=== PATIENT | female | born 1955 | race Caucasian/White ===

== ENCOUNTER → 2017-06-13 | Outpatient (CLI) | payer BC ==
--- NOTE | 2017-06-14 12:49 | MM ---
Reason for exam: screening (asymptomatic). Last mammogram was performed 1 year and 2 months ago. History: Patient is postmenopausal. Benign left mammotome panel of the left breast, June 26, 2009. Took estrogen for 1 year beginning at age 54. Took progesterone for 1 year beginning at age 54. Physical Findings: A clinical breast exam by your physician is recommended on an annual basis and results should be correlated with mammographic findings. MG Screening Mammo w CAD Bilateral CC and MLO view(s) were taken. Prior study comparison: April 12, 2016, bilateral MG screening mammo w CAD. January 07, 2015, bilateral MG screening mammo w CAD. December 30, 2013, bilateral digital screening mammo w/CAD. There are scattered fibroglandular densities. Previous mammotome biopsy within the left breast. There is no discrete abnormality. ASSESSMENT: Negative, BI-RAD 1 RECOMMENDATION: Routine screening mammogram of both breasts in 1 year.
== END | disposition home or self-care (01) ==
LOC: RADMAMWWP 12:08
PROVIDERS: ATTEND Obstetrics & Gynecology
DX: Z12.31 Encounter for screening mammogram for malignant neoplasm of breast (principal)

== ENCOUNTER 2018-06-01 03:56 | Observation (INO) | payer BC ==
[2018-06-01] MEDS ORDERED: NITROGLYCERIN SL TABS 0.4 MG TAB SUBLINGUAL STA (04:54)
[2018-06-01] MEDS ORDERED: SODIUM CHLORIDE 0.9% 1,000 ML IV STA (04:54)
[2018-06-01] MEDS ORDERED: GLUCAGON 1 MG/ML VIAL IVP STA (04:55)
--- NOTE | 2018-06-01 04:59 | ED ---
General Adult HPI - General Chief complaint: ENT Stated complaint: ESOPHAGEAL SPASMS Time Seen by Provider: 06/01/18 04:25 Source: patient Mode of arrival: ambulatory Limitations: no limitations - History of Present Illness Initial comments: He states 3-year-old female with a history of esophageal spasm requiring esophageal dilatation of the past presenting to the ER today for evaluation of feeling as though something is stuck in her esophagus or her esophagus is spasming. Patient reports she had corn, zucchini, cornbread and a little bit of ribs for dinner last night. Afterwards she developed a sensation that something was stuck in her esophagus. She reports that throughout the night she has been unable to tolerate her oral secretions. She reports that she's had multiple episodes of vomiting up what appears to just be saliva. She's not vomited up any food. She reports that she's had episodes of esophageal spasm in the past but they never last this long and she usually has resolution after vomiting. The patient states that her last EGD was approximately 2 years ago. She has been well controlled since that time. She states that in the past she has taken a medication that dissolved under her tongue and helped her esophageal spasm but she is uncertain what the medication was. Patient denies any cardiac history, any exertional chest pain, shortness of breath, diaphoresis or lightheadedness. She reports that this pain is identical to previous esophageal spasm pain. - Related Data Allergies Allergy/AdvReac Type Severity Reaction Status Date / Time No Known Allergies Allergy Verified 06/01/18 04:04 Review of Systems ROS Statement: Those systems with pertinent positive or pertinent negative responses have been documented in the HPI. ROS Other: All systems not noted in ROS Statement are negative. Past Medical History Past Medical History: No Reported History History of Any Multi-Drug Resistant Organisms: None Reported Past Surgical History: Joint Replacement Additional Past Surgical History / Comment(s): left knee; esophageal dilation Past Psychological History: No Psychological Hx Reported Smoking Status: Never smoker Past Alcohol Use History: Occasional Past Drug Use History: Marijuana General Exam Limitations: no limitations Course Vital Signs 06/01/18 06/01/18 06/01/18 04:01 04:10 05:29 Temperature 98.0 F Pulse Rate 77 72 75 Respiratory 17 16 18 Rate Blood Pressure 125/71 145/72 O2 Sat by Pulse 99 99 97 Oximetry EKG Findings - EKG Comments: EKG Findings:: EKG obtained at 5:40 AM, rate is 63, rhythm is sinus, AL is 200, QRS is 78, QTC is [address] elevations or depressions, no evidence of acute ischemia or infarction. Medical Decision Making - Medical Decision Making She was seen and evaluated, history was obtained from the patient Patient with a history of esophageal spasms and stricture in the past requiring dilatation approximately 2 years ago Today with globus sensation in her chest feeling as though food is stuck, not tolerating her oral secretions Patient reports that she has had similar episodes to this intermittently for a couple of years but they usually last only seconds to minutes and resolved and she feels fine afterwards. This has persisted throughout the night so she came to the ER Considering the patient's age I will order a cardiac workup, however I do have a high suspicion for esophageal spasm or stricture causing food bolus. I will hold oral aspirin at this time Treat with nitro and glucagon Patient was given nitroglycerin glucagon, she reported no improvement in her discomfort. She attempted to drink water and immediately regurgitated. X-ray with no acute findings of perforation She care was discussed with Dr. Simon who has seen the patient and the past, she recommends pacing patient in observation, nothing by mouth, IV fluid resuscitation and plan for EGD today for food bolus. - Lab Data Result diagrams: 06/01/18 05:25 06/01/18 05:25 Lab Results 06/01/18 06/01/18 06/01/18 Range/Units 05:25 05:25 05:25 WBC 8.6 (3.8-10.6) k/uL RBC 5.12 (3.80-5.40) m/uL Hgb 15.4 (11.4-16.0) gm/dL Hct 46.3 H (34.0-46.0) % MCV 90.5 (80.0-100.0) fL MCH 30.1 (25.0-35.0) pg MCHC 33.3 (31.0-37.0) g/dL RDW 12.6 (11.5-15.5) % Plt Count 294 (150-450) k/uL Neutrophils % 71 % Lymphocytes % 17 % Monocytes % 5 % Eosinophils % 4 % Basophils % 1 % Neutrophils # 6.1 (1.3-7.7) k/uL Lymphocytes # 1.5 (1.0-4.8) k/uL Monocytes # 0.5 (0-1.0) k/uL Eosinophils # 0.3 (0-0.7) k/uL Basophils # 0.1 (0-0.2) k/uL PT 10.2 (9.0-12.0) sec INR 1.0 (<1.2) APTT 26.2 (22.0-30.0) sec Sodium 141 (137-145) mmol/L Potassium 4.0 (3.5-5.1) mmol/L Chloride 108 H (98-107) mmol/L Carbon Dioxide 25 (22-30) mmol/L Anion Gap 8 mmol/L BUN 12 (7-17) mg/dL Creatinine 0.71 (0.52-1.04) mg/dL Est GFR (CKD-EPI)AfAm >90 (>60 ml/min/1.73 sqM) Est GFR (CKD-EPI)NonAf >90 (>60 ml/min/1.73 sqM) Glucose 96 (74-99) mg/dL Calcium 9.8 (8.4-10.2) mg/dL Magnesium 2.1 (1.6-2.3) mg/dL Total Bilirubin 0.6 (0.2-1.3) mg/dL AST 37 H (14-36) U/L ALT 31 (9-52) U/L Alkaline Phosphatase 84 (38-126) U/L Troponin I (0.000-0.034) ng/mL Total Protein 7.7 (6.3-8.2) g/dL Albumin 4.7 (3.5-5.0) g/dL 06/01/18 Range/Units 05:25 WBC (3.8-10.6) k/uL RBC (3.80-5.40) m/uL Hgb (11.4-16.0) gm/dL Hct (34.0-46.0) % MCV (80.0-100.0) fL MCH (25.0-35.0) pg MCHC (31.0-37.0) g/dL RDW (11.5-15.5) % Plt Count (150-450) k/uL Neutrophils % % Lymphocytes % % Monocytes % % Eosinophils % % Basophils % % Neutrophils # (1.3-7.7) k/uL Lymphocytes # (1.0-4.8) k/uL Monocytes # (0-1.0) k/uL Eosinophils # (0-0.7) k/uL Basophils # (0-0.2) k/uL PT (9.0-12.0) sec INR (<1.2) APTT (22.0-30.0) sec Sodium (137-145) mmol/L Potassium (3.5-5.1) mmol/L Chloride (98-107) mmol/L Carbon Dioxide (22-30) mmol/L Anion Gap mmol/L BUN (7-17) mg/dL Creatinine (0.52-1.04) mg/dL Est GFR (CKD-EPI)AfAm (>60 ml/min/1.73 sqM) Est GFR (CKD-EPI)NonAf (>60 ml/min/1.73 sqM) Glucose (74-99) mg/dL Calcium (8.4-10.2) mg/dL Magnesium (1.6-2.3) mg/dL Total Bilirubin (0.2-1.3) mg/dL AST (14-36) U/L ALT (9-52) U/L Alkaline Phosphatase (38-126) U/L Troponin I <0.012 (0.000-0.034) ng/mL Total Protein (6.3-8.2) g/dL Albumin (3.5-5.0) g/dL Disposition Clinical Impression: Globus sensation Disposition: ADMITTED IP TO THIS HOSP Referrals: Mundo Huerta MD [Primary Care Provider] - 1-2 days Time of Disposition: 06:16
--- NOTE | 2018-06-01 05:37 | XR ---
EXAM: XR Chest, 2 Views CLINICAL HISTORY: Chest Pain TECHNIQUE: Frontal and lateral views of the chest. COMPARISON: No relevant prior studies available. FINDINGS: Lungs: Unremarkable. No consolidation. Pleural space: Unremarkable. No pleural effusions. No pneumothorax. Heart: Unremarkable. No cardiomegaly. Mediastinum: Unremarkable. Bones/joints: Unremarkable. IMPRESSION: No acute cardiopulmonary process.
[2018-06-01 05:44] LABS: Basophils # (A) 0.1 k/uL (0-0.2); Basophils % (A) 1 %; Eosinophils # (A) 0.3 k/uL (0-0.7); Eosinophils % (A) 4 %; HCT 46.3 % (34.0-46.0); HGB 15.4 gm/dL (11.4-16.0); Lymphocytes # (A) 1.5 k/uL (1.0-4.8); Lymphocytes % (A) 17 %; MCH 30.1 pg (25.0-35.0); MCHC 33.3 g/dL (31.0-37.0); MCV 90.5 fL (80.0-100.0); Mean Platelet Volume 6.3; Monocytes # (A) 0.5 k/uL (0-1.0); Monocytes % (A) 5 %; Neutrophils # (A) 6.1 k/uL (1.3-7.7); Neutrophils % (A) 71 %; Platelet Count 294 k/uL (150-450); RBC 5.12 m/uL (3.80-5.40); RDW 12.6 % (11.5-15.5); WBC 8.6 k/uL (3.8-10.6)
[2018-06-01 05:52] LABS: ALT 31 U/L (9-52); AST 37 U/L (14-36); Albumin 4.7 g/dL (3.5-5.0); Alkaline Phosphatase 84 U/L (38-126); Anion Gap 8 mmol/L; Blood Urea Nitrogen 12 mg/dL (7-17); Calcium 9.8 mg/dL (8.4-10.2); Carbon Dioxide 25 mmol/L (22-30); Chloride 108 mmol/L (98-107); Glucose 96 mg/dL (74-99); Magnesium 2.1 mg/dL (1.6-2.3); Sodium 141 mmol/L (137-145); Total Bilirubin 0.6 mg/dL (0.2-1.3); Total Protein 7.7 g/dL (6.3-8.2)
[2018-06-01 06:03] LABS: Partial Thromboplastin Time 26.2 sec (22.0-30.0); Prothrombin Time 10.2 sec (9.0-12.0)
[2018-06-01] MEDS ORDERED: NALOXONE 0.4 MG/ML 1 ML VIAL IV PRN (06:12)
[2018-06-01] MEDS: SODIUM CHLORIDE 0.9% 1,000 ML IV SCH ×2 (07:04→14:16)
[2018-06-01 07:05] VITALS: RESP 16; TEMP 97
[2018-06-01] MEDS ORDERED: PROPOFOL 10 MG/ML 20 ML VIAL IV ONE (10:52)
[2018-06-01] MEDS ORDERED: LIDOCAINE 1% INJ 10MG/ML (20 ML MDV) ONE (10:52)
--- NOTE | 2018-06-01 10:55 | P.GSHP ---
History of Present Illness H&P Date: 06/01/18 Chief Complaint: cant swallow The patient is a 63-year-old female who has a history of esophageal stricture in the past. Presented with inability to swallow. It started after eating barbecued ribs with corn, zucchini, cornbread. She will usually noticed some spasm after swallowing but Tums like this which persist. - Review of Systems All systems: negative Past Medical History Past Medical History: No Reported History Additional Past Medical History / Comment(s): Esophageal spasms, sinus allergies. History of Any Multi-Drug Resistant Organisms: None Reported Past Surgical History: Joint Replacement Additional Past Surgical History / Comment(s): Total left knee; EGD with esophageal dilation Past Anesthesia/Blood Transfusion Reactions: No Reported Reaction Smoking Status: Never smoker - Past Family History Father Family Medical History: Pneumonia Additional Family Medical History / Comment(s): Father of pneumonia at the age of 76yrs. He was otherwise, healthy. Mother Family Medical History: Cancer Additional Family Medical History / Comment(s): Mother of pancreatic cancer at the age of 71yrs. Medications and Allergies Allergies Allergy/AdvReac Type Severity Reaction Status Date / Time No Known Allergies Allergy Verified 06/01/18 04:04 Surgical - Exam Osteopathic Statement: *. No significant issues noted on an osteopathic structural exam other than those noted in the History and Physical/Consult. Vital Signs Temp Pulse Resp BP Pulse Ox 98.0 F 77 17 125/71 99 06/01/18 04:01 06/01/18 04:01 06/01/18 04:01 06/01/18 04:01 06/01/18 04:01 - General well developed, well nourished, no distress - Eyes PERRL - ENT normal mucosa - Neck trachea midline, no lymphadectomy - Respiratory normal expansion, clear to auscultation - Cardiovascular Rhythm: regular - Abdomen Abdomen: soft, non tender, no tender, bowel sounds, no guarding, no rigid, no rebound, no distended Results - Labs 06/01/18 05:25 06/01/18 05:25 Abnormal Lab Results - Last 24 Hours (Table) 06/01/18 06/01/18 Range/Units 05:25 05:25 Hct 46.3 H (34.0-46.0) % Chloride 108 H (98-107) mmol/L AST 37 H (14-36) U/L Diabetes panel 06/01/18 Range/Units 05:25 Sodium 141 (137-145) mmol/L Potassium 4.0 (3.5-5.1) mmol/L Chloride 108 H (98-107) mmol/L Carbon Dioxide 25 (22-30) mmol/L BUN 12 (7-17) mg/dL Creatinine 0.71 (0.52-1.04) mg/dL Glucose 96 (74-99) mg/dL Calcium 9.8 (8.4-10.2) mg/dL AST 37 H (14-36) U/L ALT 31 (9-52) U/L Alkaline Phosphatase 84 (38-126) U/L Total Protein 7.7 (6.3-8.2) g/dL Albumin 4.7 (3.5-5.0) g/dL Calcium panel 06/01/18 Range/Units 05:25 Calcium 9.8 (8.4-10.2) mg/dL Albumin 4.7 (3.5-5.0) g/dL Pituitary panel 06/01/18 Range/Units 05:25 Sodium 141 (137-145) mmol/L Potassium 4.0 (3.5-5.1) mmol/L Chloride 108 H (98-107) mmol/L Carbon Dioxide 25 (22-30) mmol/L BUN 12 (7-17) mg/dL Creatinine 0.71 (0.52-1.04) mg/dL Glucose 96 (74-99) mg/dL Calcium 9.8 (8.4-10.2) mg/dL Adrenal panel 06/01/18 Range/Units 05:25 Sodium 141 (137-145) mmol/L Potassium 4.0 (3.5-5.1) mmol/L Chloride 108 H (98-107) mmol/L Carbon Dioxide 25 (22-30) mmol/L BUN 12 (7-17) mg/dL Creatinine 0.71 (0.52-1.04) mg/dL Glucose 96 (74-99) mg/dL Calcium 9.8 (8.4-10.2) mg/dL Total Bilirubin 0.6 (0.2-1.3) mg/dL AST 37 H (14-36) U/L ALT 31 (9-52) U/L Alkaline Phosphatase 84 (38-126) U/L Total Protein 7.7 (6.3-8.2) g/dL Albumin 4.7 (3.5-5.0) g/dL Assessment and Plan (1) Dysphagia Current Visit: Yes Status: Acute Code(s): R13.10 - DYSPHAGIA, UNSPECIFIED SNOMED Code(s): 85790330 (2) History of esophageal stricture Current Visit: Yes Status: Acute Code(s): Z87.19 - PERSONAL HISTORY OF OTHER DISEASES OF THE DIGESTIVE SYSTEM SNOMED Code(s): 823211968 Plan: This is likely an esophageal foreign body due to stricture. Recommended EGD with removal of foreign body and possible dilation. He procedure, risks complications were discussed. Questions were encouraged and answered. If there is a foreign body with significant inflammation in the esophagus a may not dilate her today. If that is the case we would put her on a mechanically soft diet and plan on repeating the endoscopy with dilation in a couple of weeks. Further recommendations to follow
[2018-06-01] MEDS ORDERED: IV FLUID CONTINUATION 1,000 ML IV ONE (11:06)
--- NOTE | 2018-06-01 11:07 | P.PCN ---
Date of Procedure: 06/01/18 Preoperative Diagnosis: Dysphagia, esophageal foreign body Postoperative Diagnosis: Same, Schatzki's ring Procedure(s) Performed: EGD with dilation Anesthesia: MAC Surgeon: Noemi Barba Pathology: none sent Condition: stable Disposition: floor Indications for Procedure: Patient presented with greater than 7 hours of dysphagia with symptoms from eating barbecued ribs, corn, zucchini. She had a history of esophageal strictures in the past. Her symptoms had resolved a short time ago but I recommended that we proceed with EGD. Operative Findings: Patient was taken to the endoscopy suite were gastroscope is passed per mouth to the third and fourth portions of the duodenum. The pharynx is unremarkable. The upper esophagus is without evidence of esophagitis or mass lesion. There is minimal inflammatory change in the distal esophagus along with a Schatzki's ring. Upon entry into the stomach a large meat bolus is seen. The stomach is otherwise without evidence of polyp, mass lesion, other mucosal abnormality. The pylorus and duodenum are under remarkable. A balloon dilator some paced on the biopsy port of the endoscope and progressively dilated up to 18 mm. At that point there is a little linear tearing and nonactive bleeding. She tolerated the procedure without difficulty as taken recovery room in satisfactory condition. We'll make sure she is able to tolerate a diet and if she has we'll discharge her home and I'll see her in the office in 2 weeks
[2018-06-01 12:34] VITALS: BP 117/73; PULSE 61
== END 2018-06-01 14:15 | disposition home or self-care (01) ==
LOC: EC 03:56 → 4MS4W 06:12
PROVIDERS: ADMIT Surgery; ATTEND Surgery
DX: K22.2 Esophageal obstruction (principal); T18.128A Food in esophagus causing other injury, initial encounter; X58.XXXA Exposure to other specified factors, initial encounter; Z80.0 Family history of malignant neoplasm of digestive organs; Z83.1 Family history of other infectious and parasitic diseases
CPT/HCPCS: 99284; 96361; 96374; 36415; 80053; 83735; 84484; 85025; 85610; 85730; 71046; 43215; G0378; J1610; J2001; J2704; C1726

== ENCOUNTER → 2018-07-02 | Outpatient (CLI) | payer BC ==
--- NOTE | 2018-07-03 09:21 | MM ---
Reason for exam: screening (asymptomatic). Last mammogram was performed 1 year and 1 month ago. History: Patient is postmenopausal. Benign left mammotome panel of the left breast, June 26, 2009. Took estrogen for 1 year beginning at age 54. Took progesterone for 1 year beginning at age 54. Physical Findings: A clinical breast exam by your physician is recommended on an annual basis and results should be correlated with mammographic findings. MG Screening Mammo w CAD Bilateral CC and MLO view(s) were taken. Prior study comparison: June 13, 2017, bilateral MG screening mammo w CAD. April 12, 2016, bilateral MG screening mammo w CAD. There are scattered fibroglandular densities. No significant changes when compared with prior studies. ASSESSMENT: Benign, BI-RAD 2 RECOMMENDATION: Routine screening mammogram of both breasts in 1 year.
== END | disposition home or self-care (01) ==
LOC: RADMAMWWP 10:54
PROVIDERS: ATTEND Obstetrics & Gynecology
DX: Z12.31 Encounter for screening mammogram for malignant neoplasm of breast (principal)
CPT/HCPCS: 77067

== ENCOUNTER → 2019-09-24 | Outpatient (CLI) | payer BC ==
--- NOTE | 2019-09-26 09:52 | MM ---
Reason for exam: screening (asymptomatic). Last mammogram was performed 1 year and 3 months ago. History: Patient is postmenopausal. Benign left mammotome panel of the left breast, June 26, 2009. Took estrogen for 1 year beginning at age 54. Took progesterone for 1 year beginning at age 54. Physical Findings: A clinical breast exam by your physician is recommended on an annual basis and results should be correlated with mammographic findings. MG 3D Screening Mammo W/Cad Bilateral CC and MLO view(s) were taken. Prior study comparison: July 02, 2018, bilateral MG screening mammo w CAD. June 13, 2017, bilateral MG screening mammo w CAD. The breast tissue is heterogeneously dense. This may lower the sensitivity of mammography. No suspicious abnormality. No significant changes when compared with prior studies. ASSESSMENT: Negative, BI-RAD 1 RECOMMENDATION: Routine screening mammogram of both breasts in 1 year.
== END | disposition home or self-care (01) ==
LOC: RADMAMWWP 08:25
PROVIDERS: ATTEND Obstetrics & Gynecology
DX: Z12.31 Encounter for screening mammogram for malignant neoplasm of breast (principal)
CPT/HCPCS: 77063; 77067

== ENCOUNTER → 2020-10-05 | Outpatient (CLI) | payer MEDICARE ==
--- NOTE | 2020-10-05 10:37 | BD ---
EXAMINATION TYPE: Axial Bone Density DATE OF EXAM: 10/05/2020 COMPARISON: NONE CLINICAL HISTORY: Height: 63.5 Weight: 116.5 FRAX RISK QUESTIONS: Alcohol (3 or more units per day): no Family History (Parent hip fracture): no Glucocorticoids (More than 3mos): no (Ex: prednisone, prednisolone, methylprednisolone, dexamethasone, and hydrocortisone). History of Fracture in Adulthood: no Secondary Osteoporosis: 1. Type 1 Diabetes: no 2. Hyperthyroidism: no 3. Menopause before 45: unsure 4. Malnutrition: no 5. Chronic liver disease: no Rheumatoid Arthritis: no Current Tobacco Use: no RISK FACTORS HISTORY OF: Family History of Osteoporosis: no Active: yes Diet low in dairy products/other sources of calcium: yes Postmenopausal woman: unsure sometime in her 40's Lost more than 2 inches in height since high school: no MEDICATIONS: Additional History: EXAM MEASUREMENTS: Bone mineral densitometry was performed using the [employer] System. Bone mineral density as measured about the Lumbar spine is: ----- L1-L4(G/cm2): 0.944 T Score Values are as follows: ----- L2: -3.1 ----- L3: -2.4 ----- L4: -0.2 ----- L1-L4: -2.0 Bone mineral density: baseline Bone mineral density about the R hip (g/cm2): 0.692 Bone mineral density about the L hip (g/cm2): 0.721 T Score values are as follows: -----R Neck: -2.5 -----L Neck: -2.3 -----R Total: -2.4 -----L Total: -2.6 Bone mineral density : baseline IMPRESSION: Osteoporosis NOTE: T-SCORE=SD OF THE YOUNG ADULT MEAN.
== END | disposition home or self-care (01) ==
LOC: RADBDWWP 09:49
PROVIDERS: ATTEND Pediatrics
DX: M81.0 Age-related osteoporosis without current pathological fracture (principal)
CPT/HCPCS: 77080

== ENCOUNTER → 2020-11-02 | Outpatient (CLI) | payer MEDICARE ==
--- NOTE | 2020-11-02 10:27 | US ---
EXAMINATION TYPE: US duplex aorta DATE OF EXAM: 11/02/2020 COMPARISON: NONE CLINICAL HISTORY: 65-year-old female Z13.6 Encounter for screening for cardiovascular disease. TECHNIQUE: Multiple sonographic images of the abdominal aorta are obtained. FINDINGS: EXAM MEASUREMENTS: Abdominal Aorta: Proximal: 2.1 x 2.1 cm Mid: 1.9 x 1.4 cm Distal: 1.6 x 1.5 cm Bifurcation: Right: 8 x 8 mm Left: 8 x 7 mm IMPRESSION: No sonographic evidence for AAA.
== END | disposition home or self-care (01) ==
LOC: RADUSWWP 08:17
PROVIDERS: ATTEND Pediatrics
DX: Z13.6 Encounter for screening for cardiovascular disorders (principal)
CPT/HCPCS: 93979

== ENCOUNTER → 2020-12-10 | Outpatient (CLI) | payer MEDICARE ==
--- NOTE | 2020-12-11 13:49 | MM ---
Reason for exam: screening (asymptomatic). Last mammogram was performed 1 year and 2 months ago. History: Patient is postmenopausal and has history of other cancer at age 65. Benign left mammotome panel of the left breast, June 26, 2009. Took estrogen for 1 year beginning at age 54. Took progesterone for 1 year beginning at age 54. Physical Findings: A clinical breast exam by your physician is recommended on an annual basis and results should be correlated with mammographic findings. MG 3D Screening Mammo W/Cad Bilateral CC and MLO view(s) were taken. Prior study comparison: September 24, 2019, bilateral MG 3d screening mammo w/cad. July 02, 2018, bilateral MG screening mammo w CAD. There are scattered fibroglandular densities. There is no discrete abnormality. No significant changes when compared with prior studies. ASSESSMENT: Negative, BI-RAD 1 RECOMMENDATION: Routine screening mammogram of both breasts in 1 year.
== END | disposition home or self-care (01) ==
LOC: RADMAMWWP 10:18
PROVIDERS: ATTEND Pediatrics
DX: Z12.31 Encounter for screening mammogram for malignant neoplasm of breast (principal)
CPT/HCPCS: 77063; 77067

== ENCOUNTER → 2022-04-26 | Outpatient (CLI) | payer MEDICARE ==
--- NOTE | 2022-04-27 08:56 | MM ---
Reason for Exam: Screening (asymptomatic). Last mammogram was performed 1 year(s) and 5 month(s) ago. Patient History: Menarche at age 13. First Full-Term at age 30. Late child-bearing (after 30). Postmenopausal. Estrogen for 1 year from age 54 until age 55. Progesterone for 1 year from age 54 until age 55. 06/26/2009, Benign Core Biopsy on the left side. Risk Values: Arlene 5 year model risk: 2.8%. NCI Lifetime model risk: 9.3%. Prior Study Comparison: 07/02/2018 Bilateral Screening Mammogram, [facility]. 09/24/2019 Bilateral Screening Mammogram, [facility]. 12/10/2020 Bilateral Screening Mammogram, [facility]. Tissue Density: There are scattered fibroglandular densities. Findings: Analyzed By CAD. Biopsy clip left breast redemonstrated. Benign-appearing Vascular calcification left breast redemonstrated. There is no suspicious group of microcalcifications or new suspicious mass in either breast. Overall Assessment: Benign, BI-RAD 2 Management: Screening Mammogram of both breasts in 1 year. A clinical breast exam by your physician is recommended on an annual basis and results should be correlated with mammographic findings. Electronically signed and approved by: Scott Enciso M.D.
== END | disposition home or self-care (01) ==
LOC: RADMAMWWP 08:17
PROVIDERS: ATTEND Pediatrics
DX: Z12.31 Encounter for screening mammogram for malignant neoplasm of breast (principal); Z78.0 Asymptomatic menopausal state
CPT/HCPCS: 77063; 77067

== ENCOUNTER → 2022-09-06 | Outpatient (CLI) | payer MEDICARE ==
[2022-09-06 14:22] LABS: Basophils # (A) 0.07 X 10*3/uL (0.00-0.10); Basophils % (A) 1.4 %; Eosinophils # (A) 0.38 X 10*3/uL (0.04-0.35); Eosinophils % (A) 7.8 %; HCT 42.2 % (37.2-46.3); HGB 13.8 g/dL (12.0-15.0); Immature Grans, Automated 0.4 %; Lymphocytes # (A) 1.36 X 10*3/uL (0.90-5.00); Lymphocytes % (A) 27.9 %; MCH 30.4 pg (27.0-32.0); MCHC 32.7 g/dL (32.0-37.0); Mean Platelet Volume 9.6 fL (9.5-12.2); Monocytes # (A) 0.57 X 10*3/uL (0.20-1.00); Monocytes % (A) 11.7 %; NRBC Per 100 WBC 0 /100 WBCS (0.0-0.0); Neutrophils # (A) 2.48 X 10*3/uL (1.80-7.70); Neutrophils % (A) 50.8 %; Platelet Count 277 X 10*3/uL (140-440); RBC 4.54 X 10*6/uL (4.10-5.20); RDW 12.8 % (11.5-14.5); WBC 4.88 X 10*3/uL (4.50-10.00)
[2022-09-06 14:53] LABS: African American GFR (CKD) 86.3 (60.0-200.0); BUN/Creat Ratio 24.88 Ratio (12.00-20.00); Blood Urea Nitrogen 20.3 mg/dL (9.0-27.0); Calcium 9.6 mg/dL (8.7-10.3); Non-African American GFR(CKD) 74.5 (60.0-200.0); Potassium 4.3 mmol/L (3.5-5.5)
== END | disposition home or self-care (01) ==
LOC: LABPAT 07:10
PROVIDERS: ATTEND Orthopaedic Surgery Hand Surgery
DX: Z01.812 Encounter for preprocedural laboratory examination (principal); G56.01 Carpal tunnel syndrome, right upper limb
CPT/HCPCS: 80048; 85025; 93005

== ENCOUNTER 2022-09-14 09:48 | Day surgery (SDC) | payer MEDICARE ==
[2022-09-07 10:35] VITALS: BMI 20.9
--- NOTE | 2022-09-13 13:35 | P.HPOR ---
History of Present Illness H&P Date: 09/13/22 Chief Complaint: Left carpal tunnel syndrome Subjective: This is a 67 year old female that presents today for initial evaluation regarding a several year history of progressively worsening bilateral hand paresthesias in the thumb, index, middle and ring fingers. They have tried braces and anti-inflammatories without relief. She denies any inciting event or neck pain. Her right side is worse than the left. Physical Examination: RUE: AIN/PIN/Radial/Ulnar/Median motor intact. Radial/Ulnar/Median SILT. 2+/4 Radial/Ulnar pulses palpated. 5/5 APB, 5/5 FDI. Negative Finkelsteins, negative CMC grind, positive Durkan's compression. RUE: AIN/PIN/Radial/Ulnar/Median motor intact. Radial/Ulnar/Median SILT. 2+/4 Radial/Ulnar pulses palpated. 5/5 APB, 5/5 FDI. Negative Finkelsteins, negative CMC grind, positive Durkan's compression. EMG/NCV: 05/04/22 demonstrates moderate bilateral carpal tunnel syndrome Impression: 1.) B/L carpal tunnel syndrome Plan: Diagnosis and treatment options were discussed with the patient. The patient has failed conservative treatment and would like to pursue a left endoscopic vs open carpal tunnel release. Risks and benefits of surgery including bleeding, infection, damage to surrounding tissue, need for further surgery, possible need to convert to open procedure, residual numbness were discussed and the patient wished to go forward with surgery. Follow up: 2 weeks post op -Cody Abebe DO Orthopedic Hand/Upper Extremity Surgeon Past Medical History Past Medical History: Cancer, Osteoarthritis (OA) Additional Past Medical History / Comment(s): Hx esophageal spasms, "no problems in a while". Sinus allergies. Hx skin cancer on left calf. Varicose vein. History of Any Multi-Drug Resistant Organisms: None Reported Past Surgical History: Joint Replacement, Orthopedic Surgery Additional Past Surgical History / Comment(s): Total left knee replacement, EGD with esophageal dilation, trigger thumb release right hand, skin cancer removed from left calf. Past Anesthesia/Blood Transfusion Reactions: No Reported Reaction, Postoperative Nausea & Vomiting (PONV) Past Psychological History: No Psychological Hx Reported Smoking Status: Former smoker Past Alcohol Use History: Occasional Additional Past Alcohol Use History / Comment(s): Smoked in high school. Past Drug Use History: Marijuana Additional Drug Use History / Comment(s): Marijuana on occasion. - Past Family History Father Family Medical History: Pneumonia Additional Family Medical History / Comment(s): Father of pneumonia at the age of 76. Mother Family Medical History: Cancer Additional Family Medical History / Comment(s): Mother of pancreatic cancer at the age of 71yrs. Medications and Allergies Home Medications Medication Instructions Recorded Confirmed Type Calcium Carbonate [Calcium] 600 mg PO DAILY 06/01/18 09/07/22 History Vitamin D (Unknown Dose) 1 tab PO FR 09/07/22 09/07/22 History cod liver oiL [Cod Liver Oil] 1 each PO DAILY 09/07/22 09/07/22 History Allergies Allergy/AdvReac Type Severity Reaction Status Date / Time Penicillins Allergy Rash/Hives Verified 09/07/22 10:18 Physical Examination Osteopathic Statement: *. No significant issues noted on an osteopathic structural exam other than those noted in the History and Physical/Consult.
[~2022-09-14 09:48] MED LIST: DEXAMETHASONE SOD PHOSPHATE 4 MG/ML 1 ML VIAL IV ONE; HYDROmorphone 0.5 MG/0.5 ML SYRINGE IVP PRN; LACTATED RINGERS 1,000 ML IV SCH; LIDOCAINE 1% (10MG/ML) FOR IV START INTRADERMA PRN; ONDANSETRON 4 MG/2 ML VIAL IVP ONE; Pre Op ABX Message 1 EACH MISC MISCELLANE ONE
[2022-09-14 10:21] VITALS: TEMP 97.9
[2022-09-14] MEDS ORDERED: MIDAZOLAM 2 MG/2 ML VIAL ONE (10:37)
[2022-09-14] MEDS ORDERED: fentaNYL (PF) 50 MCG/ML 2 ML AMP ONE (10:37)
[2022-09-14] MEDS ORDERED: PROPOFOL 10 MG/ML 20 ML VIAL IV ONE (10:37)
[2022-09-14] MEDS ORDERED: BUPIVACAINE (PF) 0.5% 30 ML VIAL SQ ONE (10:47)
[2022-09-14] MEDS ORDERED: LIDOCAINE 1% INJ 10MG/ML (20 ML MDV) SQ ONE (10:47)
--- NOTE | 2022-09-14 11:17 | P.OP ---
Date of Procedure: 09/14/22 Preoperative Diagnosis: Left carpal tunnel syndrome Postoperative Diagnosis: Left carpal tunnel syndrome Procedure(s) Performed: Left endoscopic carpal tunnel release Anesthesia: MAC Surgeon: Cody Abebe Dinkey Engine Firer #1: Corey Velez Estimated Blood Loss (ml): 0 Pathology: none sent Condition: stable Disposition: PACU Description of Procedure: This is a 67 year old female who presents today for a left endoscopic carpal tunnel release after having failed conservative treatment in the past. Risks and benefits of surgery were discussed with the patient including bleeding, damage to surrounding tissue, infection, need to convert to open procedure, need for further surgery as well as risks of anesthesia including pulmonary embolism and even and the patient wished to proceed with surgical intervention. The patients was seen in the pre-operative area by myself. Consent and H&P were completed and updated. The correct extremity was marked in the pre-operative area by myself and all other questions were answered. Operative Narrative: The patient was brought to the operating room by the department of anesthesia. They remained on the portable stretcher and a rolling hand table was brought to the side of the operative extremity. Pre-operative time out was performed indicating the correct patient, procedure and laterality. All in the room agreed. The patient was then drifted off to sleep by the department of anesthesia. MAC anesthesia was utilized and a 50:50 mixture of 1% Lidocaine and 0.5% bupivacaine was injected into the subcutaneous tissues of the palmar skin, 8ccs total. A nonsterile tourniquet was then applied to the operative extremity and the left upper extremity was then prepped and draped in normal sterile fashion. The operative extremity was the exsanguinated with an esmarch bandage and the tourniquet was inflated to 250mmHg. 15 blade scalpel was utilized to make a transverse incision on the palmar skin just ulnar to the palmaris longus tendon at the level of the distal wrist crease. Ragnell retractor was then placed radially and blunt dissection was performed to reveal the distal forearm fascia. This was lifted with fine Kurt pick ups and Littler tenotomy scissors were then used to open the forearm fascia transversely and a double skin hook was then placed. Hamate finder was placed into the carpal tunnel and then sequential sized dilators were inserted followed by the synovial elevator to separate the flexor tenosynovium from the undersurface of the transverse carpal ligament and a washboard texture was felt. The MicroAire endoscopic carpal tunnel release system gun was the then inserted into the carpal tunnel hugging the deep portion of the transverse carpal ligament in line with the base of the ring finger. Transverse fibers of the ligament were directly visualized. Pressure was applied on the palm to reveal the distal extent of the transverse carpal ligament. The blade was then deployed and the distal half of the transverse carpal ligament was released. The scope was then brought distal again and remaining transverse fibers were incised with the blade. The proximal half of the transverse carpal ligament was then divided and again the scope was advanced distal and remaining transverse fibers were incised with the blade. The radial and ulnar leaflets were directly visualized and mobile consistent with complete release. Tenotomy scissors were then utiliz ed to release the remaining distal forearm fascia under direct visualization taking care to preserve the palmar cutaneous branch of the median nerve. Skin closure was performed with interrupted 4-0 Monocryl suture followed by Mastisol and steri strips. Sterile dressing was applied consisting of adaptic, 4x4s, Webril, and an callie bandage. Tourniquet was let down and the hand immediately was well perfused. The patient was then woken by the department of anesthesia and transferred to PACU in stable condition. Corey PETERS was present for the case in its entirety and assisted in major portions of the case and protection of vital neurovascular structures. Cody Abebe D.O. Orthopedic Hand/Upper Extremity Surgeon
[2022-09-14 11:49] VITALS: BP 109/72; PULSE 71; RESP 20
== END 2022-09-14 11:30 | disposition home or self-care (01) ==
LOC: OR 09:48
PROVIDERS: ATTEND Orthopaedic Surgery Hand Surgery
DX: G56.02 Carpal tunnel syndrome, left upper limb (principal); M19.90 Unspecified osteoarthritis, unspecified site; I83.90 Asymptomatic varicose veins of unspecified lower extremity; K91.0 Vomiting following gastrointestinal surgery; F10.90 Alcohol use, unspecified, uncomplicated; F12.90 Cannabis use, unspecified, uncomplicated; Z87.891 Personal history of nicotine dependence; Z98.890 Other specified postprocedural states; Z85.828 Personal history of other malignant neoplasm of skin; Z87.898 Personal history of other specified conditions; Z83.6 Family history of other diseases of the respiratory system; Z80.0 Family history of malignant neoplasm of digestive organs; Z88.0 Allergy status to penicillin; Z79.899 Other long term (current) drug therapy
CPT/HCPCS: 29848; J2250; J1100; J2405; J2001; J3010; J2704

== ENCOUNTER → 2024-02-23 | Outpatient (CLI) | payer MEDICARE ==
--- NOTE | 2024-02-23 15:13 | BD ---
EXAMINATION TYPE: Axial Bone Density DATE OF EXAM: 02/23/2024 CLINICAL HISTORY: 68 years old Female. ICD-10 CODE: M81.0 osteoporosis Height: 63.5 Weight: 116 FRAX RISK QUESTIONS: Family History (Parent hip fracture): no History of Fracture in Adulthood: no Secondary Osteoporosis: no RISK FACTORS HISTORY OF: Surgery to Spine/Hip(right/left)/Wrist (right/left): no MEDICATIONS: Thyroid Medications: no Osteoporosis Medications: no EXAM MEASUREMENTS: Bone mineral densitometry was performed using the Cohuman System. Bone mineral density as measured about the Lumbar spine is: ----- L1-L4(G/cm2): 0.987 T Score Values are as follows: ----- L1: -3.2 ----- L2: -3.5 ----- L3: -2.0 ----- L4: 0.7 ----- L1-L4: -1.6 Z Score Values are as follows: ----- L1: -1.1 ----- L2: -1.4 ----- L3: 0.0 ----- L4: 2.7 ----- L1-L4: 0.4 Bone mineral density has: Increased 5.2% since study of: 10/05/2020 Bone mineral density about the R hip (g/cm2): 0.682 Bone mineral density about the L hip (g/cm2): 0.667 T Score values are as follows: -----R Neck: -2.6 -----L Neck: -2.4 -----R Total: -2.6 -----L Total: -2.7 Z Score values are as follows: -----R Neck: -0.7 -----L Neck: -0.5 -----R Total: -0.9 -----L Total: -1.0 Bone mineral density has: Decreased -2.5% since study of: 10/05/2020 FRAX%s: The graph provided illustrates a 13.4% chance for a major osteoporotic fx and a 3.7% chance f or the hips probability for fx in 10 years time. IMPRESSION: Osteoporosis (T Score less than -2.5). There is increased fracture risk and therapy is usually indicated based on age. Re-Screen 1-2 years. NOTE: T-SCORE=SD OF THE YOUNG ADULT MEAN.
--- NOTE | 2024-02-26 10:39 | MM ---
Reason for Exam: Screening (asymptomatic). Last mammogram was performed 1 year(s) and 10 month(s) ago. Patient History: Menarche at age 13. First Full-Term at age 30. Late child-bearing (after 30). Postmenopausal. Estrogen for 1 year from age 54 until age 55. Progesterone for 1 year from age 54 until age 55. 06/26/2009, Benign Core Biopsy on the left side. Risk Values: Arlene 5 year model risk: 2.8%. NCI Lifetime model risk: 8.9%. Prior Study Comparison: 09/24/2019 Bilateral Screening Mammogram, [facility]. 12/10/2020 Bilateral Screening Mammogram, [facility]. 04/26/2022 Bilateral MG 3D screening mammo w/cad, [facility]. Tissue Density: There are scattered areas of fibroglandular density. Findings: Analyzed By CAD. Right breast: There is no suspicious group of microcalcifications or new suspicious mass. Left breast: There is no suspicious group of microcalcifications or new suspicious mass. Overall Assessment: Negative, BI-RAD 1 Management: Screening Mammogram of both breasts in [address] [facility] will attempt to contact patient to return for supplemental views and ultrasound if indicated. Patient should continue monthly self-breast exams. A clinical breast exam by your physician is recommended on an annual basis. This exam should not preclude additional follow-up of suspicious palpable abnormalities. Note on Arlene scores and lifetime risk: 1. A Arlene score greater than 3% is considered moderate risk. If this is the case, consider specialist referral to assess eligibility for a risk reducing agent. 2. If overall lifetime risk for the development of breast cancer is 20% or higher, the patient may qualify for future screening with alternating mammogram and breast MRI. Electronically signed and approved by: Farhad Fabian DO
== END | disposition home or self-care (01) ==
LOC: RADMAMWWP 09:59
PROVIDERS: ATTEND Pediatrics
DX: Z12.31 Encounter for screening mammogram for malignant neoplasm of breast (principal); M85.89 Other specified disorders of bone density and structure, multiple sites; M81.0 Age-related osteoporosis without current pathological fracture; Z78.0 Asymptomatic menopausal state
CPT/HCPCS: 77063; 77067; 77080

== ENCOUNTER → 2024-05-22 | Outpatient (CLI) | payer MEDICARE ==
--- NOTE | 2024-06-23 00:48 | XR ---
EXAMINATION TYPE: XR shoulder complete BILAT DATE OF EXAM: 05/22/2024 INDICATION: Patient age:Female; 69 years old; Reason for study: ARM PAIN; COMPARISON: None TECHNIQUE: Both shoulders were examined in AP, internally rotated and scapular Y projections. . FINDINGS: No evidence of acute osseous pathology, joint dislocation, or soft tissue swelling. Medial joint spac e narrowing with inferior spurring of both humeral heads. The remaining portions of the visualized ch est are unremarkable. IMPRESSION: 1. No acute osseous pathology. 2. Minimal osteoarthritic changes of both shoulders.
--- NOTE | 2024-06-23 00:50 | XR ---
EXAMINATION TYPE: XR thoracic spine complete DATE OF EXAM: 05/22/2024 INDICATION: Patient age:Female; 69 years old; Reason for study: ARM PAIN; [facility]. COMPARISON: Chest radiograph 06/01/2018 TECHNIQUE: 2 views of the thoracic spine in Frontal and lateral projections. FINDINGS: No evidence of acute fracture. No vertebral body height loss. Multilevel disc space narrowing with en dplate screws and anterior osteophytosis. There is normal alignment of the thoracic vertebral bodies. IMPRESSION: 1. No acute osseous pathology. 2. Mild multilevel degenerative disc disease of the thoracic spine.
--- NOTE | 2024-06-23 00:52 | XR ---
EXAMINATION TYPE: XR cervical spine comp DATE OF EXAM: 05/22/2024 INDICATION: Patient age:Female; 69 years old; Reason for study: ARM PAIN; [facility]. COMPARISON: None TECHNIQUE: The cervical spine was imaged in frontal, bilateral oblique, lateral, and odontoid project ions. FINDINGS: The osseous structures show normal alignment without evidence of an acute fracture. There are osteoph ytes noted throughout the cervical spine on the anterior and lateral aspects of the vertebral bodies. There is disc space narrowing with endplate sclerosis primarily involving the C4-C5 and C6-C7 verteb ral bodies. Mild bilateral neuroforaminal stenosis at C5-C6 Pedicles are intact. Soft tissues are wi thin normal limits. The odontoid appears intact. IMPRESSION: 1. No fracture or dislocation. 2. Mild degenerative disc disease changes of the cervical spine.
== END | disposition home or self-care (01) ==
LOC: RADXRMAIN 11:15
PROVIDERS: ATTEND Pediatrics
DX: M19.011 Primary osteoarthritis, right shoulder (principal); M19.012 Primary osteoarthritis, left shoulder; M51.34 Other intervertebral disc degeneration, thoracic region; M50.321 Other cervical disc degeneration at C4-C5 level
CPT/HCPCS: 72050; 72072

== ENCOUNTER → 2024-08-06 | Outpatient (CLI) | payer MEDICARE ==
[2024-08-06 15:50] LABS: Basophils # (A) 0.11 X 10*3/uL (0.00-0.10); Basophils % (A) 1.3 %; Eosinophils # (A) 1.17 X 10*3/uL (0.04-0.35); Eosinophils % (A) 14.2 %; HCT 43.3 % (37.2-46.3); HGB 13.8 g/dL (12.0-15.0); Lymphocytes # (A) 1.75 X 10*3/uL (0.90-5.00); Lymphocytes % (A) 21.2 %; MCH 29.2 pg (27.0-32.0); MCHC 31.9 g/dL (32.0-37.0); MCV 91.7 FL (80.0-97.0); Mean Platelet Volume 9.4 FL (9.5-12.2); Monocytes % (A) 8.5 %; NRBC Per 100 WBC 0 X 10*3/uL (0.00-0.01); Neutrophils # (A) 4.47 X 10*3/uL (1.80-7.70); Neutrophils % (A) 54.2 %; Platelet Count 363 X 10*3/uL (140-440); RBC 4.72 X 10*6/uL (4.10-5.20); RDW 13.5 % (11.5-14.5); WBC 8.25 X 10*3/uL (4.50-10.00)
[2024-08-06 17:30] LABS: Potassium 4.7 mmol/L (3.5-5.5)
== END | disposition home or self-care (01) ==
LOC: LABPAT 10:34
PROVIDERS: ATTEND Orthopaedic Surgery
DX: M75.42 Impingement syndrome of left shoulder (principal)
CPT/HCPCS: 80051; 85025; 93005

== ENCOUNTER 2024-08-14 05:35 | Day surgery (SDC) | payer MEDICARE ==
[2024-08-12 15:37] VITALS: BMI 20.7
--- NOTE | 2024-08-13 16:50 | HP ---
HISTORY AND PHYSICAL DATE OF SURGERY: 08/14/2024. HISTORY OF PRESENT ILLNESS: Shyla Lopez is a 69-year-old patient seen with progressive left shoulder pain. After having treatment options discussed, she elected to proceed with left shoulder arthroscopy. Consent regarding procedure was obtained. PAST MEDICAL HISTORY: Noncontributory. PAST SURGICAL HISTORY: Left total knee arthroplasty, right thumb surgery. DAILY MEDICATIONS: Vitamins. ALLERGIES: Penicillin. SOCIAL HISTORY: She denies tobacco use. PHYSICAL EVALUATION OF THE LEFT SHOULDER: Flexion is 130 degrees. Abduction is 120 degrees. External rotation is 30 degrees with weakness and pain. Tenderness along the anterolateral acromion, bicipital groove, along with the rotator cuff tendon and long head biceps tendon. Impingement is positive at 70 degrees. Cross-body adduction sign is positive. Drop-arm sign is positive. Distal neurovascular exam is intact. IMAGING STUDIES: Radiographs of the left shoulder revealed a type 2 acromion, acromioclavicular joint osteoarthritis, and cystic changes of the tuberosity. MRI of left shoulder revealed rotator cuff tears, partial biceps tendon tear, acromioclavicular joint osteoarthritis, and labral tear. IMPRESSION: 1. Left shoulder impingement with rotator cuff tear. 2. Left shoulder partial biceps tendon tear. 3. Left shoulder acromioclavicular joint osteoarthritis. 4. Left shoulder labral tear. PLAN: Left shoulder arthroscopy, subacromial decompression, arthroscopic rotator cuff repair, biceps tenodesis, Chris procedure, and debridement. MMODL / IJN: [id number] /
[2024-08-14] MEDS ORDERED: LIDOCAINE 1% (10MG/ML) FOR IV START INTRADERMA PRN (05:55)
[2024-08-14] MEDS: IV FLUID CONTINUATION 1,000 ML IV ONE (06:15)
[2024-08-14] MEDS: LACTATED RINGERS 1,000 ML IV SCH (06:33)
[2024-08-14] MEDS: DEXAMETHASONE SOD PHOSPHATE 4 MG/ML 1 ML VIAL IV ONE (06:37)
[2024-08-14] MEDS: ONDANSETRON 4 MG/2 ML VIAL IVP ONE (06:38)
[2024-08-14] MEDS: MIDAZOLAM 2 MG/2 ML VIAL IV PRN (06:39)
[2024-08-14 06:43] LABS: Glucose,Whole Blood 97 mg/dL (70-110)
[2024-08-14] MEDS: fentaNYL (PF) 50 MCG/ML 2 ML AMP IVP PRN (06:44)
[2024-08-14] MEDS: SCOPOLAMINE 1 MG/72 HR PATCH TRANSDERM ONE (06:51)
[2024-08-14] MEDS ORDERED: HYDROmorphone 0.5 MG/0.5 ML SYRINGE IVP PRN (07:00)
--- NOTE | 2024-08-14 07:14 | P.ANPRN ---
Procedure Note - Anesthesia - Nerve Block Performed Left Interscalene Single Time Out Performed: Yes Date of Procedure: 08/14/24 Procedure Start Time: 06:39 Procedure Stop Time: 06:44 Location of Patient: PreOp Indication: Acute Post-Operative Pain, Analgesia, Requested by Surgeon Sedation Type: Sedate with meaningful contact maintained Preparation: Sterile Prep Position: Sitting Catheter: None Needle Types: Pajunk Needle Gauge: 21 Ultrasound used to visualize needle placement: Yes Ultrasound used to observe medication spread: Yes Injectate: 0.5% Ropivacaine (see comment for volume) ([id number]+Decadron 4mg, Negative stimulation @0.5MA) Blood Aspirated: No Pain Paresthesia on Injection Noted: No Resistance on Injection: Normal Image Stored and Saved: Yes Events: Uneventful and Well Tolerated
[2024-08-14] MEDS ORDERED: SUCCINYLCHOLINE CHLORIDE 200 MG/10 ML VIAL IV ONE (07:25)
[2024-08-14] MEDS ORDERED: DEXAMETHASONE SOD PHOSPHATE 4 MG/ML 1 ML VIAL ONE (07:25)
[2024-08-14] MEDS ORDERED: LIDOCAINE 4% LTA KIT (4 ML) TOPICAL ONE (07:25)
[2024-08-14] MEDS ORDERED: PROPOFOL 10 MG/ML 20 ML VIAL IV ONE (07:25)
[2024-08-14] MEDS ORDERED: GLYCOPYRROLATE 0.2 MG/ML 2 ML VIAL ONE (07:25)
[2024-08-14] MEDS ORDERED: PHENYLEPHRINE 10 MG/ML VIAL ONE (07:25)
[2024-08-14] MEDS ORDERED: ROPIVACAINE 5 MG/ML 30 ML VIAL ONE (07:25)
[2024-08-14] MEDS ORDERED: fentaNYL (PF) 50 MCG/ML 2 ML AMP ONE (07:25)
[2024-08-14] MEDS ORDERED: MIDAZOLAM 2 MG/2 ML VIAL ONE (07:25)
[2024-08-14] MEDS ORDERED: KETOROLAC 15 MG/ML 1 ML VIAL ONE (07:25)
[2024-08-14] MEDS: LACTATED RINGERS 1,000 ML IV ONE (09:02)
--- NOTE | 2024-08-14 09:21 | P.OP ---
Date of Procedure: 08/14/24 Preoperative Diagnosis: Left shoulder impingement Postoperative Diagnosis: 1. Left shoulder rotator cuff tear 2. Left shoulder impingement 3. Left shoulder partial long head biceps tendon tear 4. Left shoulder superficial labral tear 5. 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 Left shoulder arthroscopic rotator cuff repair 2. Left shoulder arthroscopic subacromial decompression 3. Left shoulder arthroscopic biceps tenodesis 4. Left shoulder arthroscopic debridement labral tear 5. Left shoulder arthroscopic chondroplasty humeral head Implants: 1Arthrex 4.75 swivel lock anchor 1Arthrex 5.5 swivel lock anchor Anesthesia: GETA, regional (Interscalene block) Surgeon: Alli Asencio [employer] Police Officer #1: Abdoulaye Becerra Estimated Blood Loss (ml): 10 Pathology: none sent Condition: stable Disposition: PACU Indications for Procedure: 69-year-old patient seen with progressive left shoulder pain. After having treatment options discussed, she elected to proceed with arthroscopy. Operative Findings: See description of procedure Description of Procedure: Patient underwent an interscalene block by department of anesthesia. The patient was then taken to the operative suite. The patient underwent a general anesthetic by the department of anesthesia. The patient was placed into a lateral position and secured. There was appropriate padding of the bony prominence. Left shoulder was then prepped and draped in normal sterile orthopedic fashion. We placed the extremity in 10 pounds of longitudinal traction. A posterior incision was now made for a posterior working portal site. The trocar and cannula were inserted into the glenohumeral joint. Arthroscopy was initiated. Spinal needle was now inserted anteriorly, to ascertain the anterior working portal site. An incision was now made in that area, a trocar was inserted followed by a probe. There was some superficial tearing of the superior labrum. There was partial tearing long head biceps tendon. There were grade II chondromalacia changes of the humeral head with small osteochondral flap tear present. I reduced a cannula through the anterior portal site. I performed a loop and tack stitch through the biceps tendon. I released the biceps tendon from the superior labral anchor. With the assistance of Lee PETERS I partial at the interval for insertion of an anchor. I passed the suture limb through the eyelet of an Arthrex 4.75 swivel lock anchor. I placed the eyelet into our prepunched a hole. I held in position while Lee PETERS tensioned the suture and deployed the anchor with good fixation noted. The residual suture limb was clipped. We had a stable appearing biceps tenodesis. I used a motorized shaver and debrided the superficial tearing of the superior labrum. I now performed a chondroplasty of the humeral head. The residual labrum was probed and was found to be stable. The residual osteochondral surface of the humeral head was stable. I again noted a stable biceps tenodesis. Instruments were in the glenohumeral joint. Utilizing the posterior working portal site, the trocar and cannula were inserted into the subacromial space. Arthroscopy initiated. I made an incision 2 fingerbreadths lateral to the acromion. I introduced my trocar followed by my ArthroCare ablator. I now began ablating thick subacromial bursal tissue, which exposed the undersurface of the anterior acromion. There was diminished subacromial space. There was a very prominent anterior acromion. A motorized bur was introduced and a subacromial decompression was performed. I also excised some osteophytes off the inferior aspect of the distal clavicle. The AC joint was visualized and noted to be moderately arthritic, not enough to warrant a Chris procedure. I turned my attention to the rotator cuff tendon. There was a full-thickness tear along the supraspinatus area. I debrided the margins getting down to stable tendon tissue. The defect/tear measured about 1.5 cm and was freely mobile over the footprint. I abraded the footprint with a motorized bur. With the assistance of Lee PETERS I passed 3 everted mattress sutures through good bites of rotator cuff tendon. I punched a hole in the footprint area for insertion of an anchor. All 6 limbs of suture were passed through the eyelet of an Arthrex 5.5 swivel lock anchor. I placed the eyelet into our prepunched a hole. I held in position while Lee PETERS tensioned the suture limbs and deployed the anchor with good fixation noted. All residual suture limbs were now clipped. We had good compression of the tendon along the entire footprint. Instruments now removed from the portal sites. All portal sites were approximated with nylon suture. Sterile dressings were applied followed by a shoulder sling. Abdoulaye PETERS assisted in all aspects of this case. The patient was awakened, transferred to a bed, and taken to recovery in stable condition.
[2024-08-14 09:23] VITALS: TEMP 96.8
[2024-08-14 09:26] VITALS: RESP 16
[2024-08-14 10:33] VITALS: BP 106/68; PULSE 92
== END 2024-08-14 11:03 | disposition home or self-care (01) ==
LOC: OR 05:35
PROVIDERS: ATTEND Orthopaedic Surgery
DX: M75.122 Complete rotator cuff tear or rupture of left shoulder, not specified as traumatic (principal); S46.112A Strain of muscle, fascia and tendon of long head of biceps, left arm, initial encounter; S43.492A Other sprain of left shoulder joint, initial encounter; M75.42 Impingement syndrome of left shoulder; M19.012 Primary osteoarthritis, left shoulder; M94.212 Chondromalacia, left shoulder; G89.18 Other acute postprocedural pain; M81.0 Age-related osteoporosis without current pathological fracture; Z91.89 Other specified personal risk factors, not elsewhere classified; Z79.83 Long term (current) use of bisphosphonates; Z96.652 Presence of left artificial knee joint; Z88.0 Allergy status to penicillin
CPT/HCPCS: 64415; 29827; 29828; 29826; 29822; C1713 ×2; J2250; J0330; J1100; J0690; J2405; J3010; J2795; J1885; J2704; J2371; J1596

== ENCOUNTER → 2024-09-30 | Outpatient (CLI) | payer MEDICARE ==
--- NOTE | 2024-09-30 17:05 | MR ---
EXAMINATION TYPE: MR shoulder RT wo con DATE OF EXAM: 09/30/2024 6:28 AM COMPARISON: None. CLINICAL INDICATION: Female, 69 years old with history of M25.511 R shoulder pain, Right shoulder jason n. IV Contrast: cc (None if empty) TECHNIQUE: Multiplanar, multisequence imaging of the right shoulder were obtained. FINDINGS: There is marked osteoarthritic changes of the glenohumeral joint where there is moderate joint space narrowing, marked thinning of the articular cartilage, marked hypertrophic spurring of the humeral he ad and subchondral cysts in the humeral head and acetabulum.. There is a small joint effusion. There is mild superior subluxation of the glenohumeral joint. There is moderate osteoarthritic change of the AC joint. There is a small subacromial spur resulting in mild shoulder impingement. There is diffuse abnormal signal intensity in both the infraspinatus and supraspinatus tendons consis tent with marked tendinosis with multiple small intrasubstance tears but no retraction of the musculo tendinous junctions. The biceps tendon is normal in position within the bicipital groove and the bicep anchor is intact. T here is abnormal signal intensity within the superior cartilaginous labrum consistent with a SLAP inj ury. The subscapularis tendon is intact. IMPRESSION: 1. Advanced osteoarthritis of the glenohumeral joint and moderate osteoarthritis of the AC joint. 2. Tendinosis and multiple intrasubstance tears of the infraspinatus and supraspinatus tendons withou t retraction. 3. Small glenohumeral joint effusion. 4. SLAP injury [facility], , 09/30/2024 5:02 PM
== END | disposition home or self-care (01) ==
LOC: RADMRIMAIN 05:52
PROVIDERS: ATTEND Orthopaedic Surgery
DX: S43.432A Superior glenoid labrum lesion of left shoulder, initial encounter (principal); M19.011 Primary osteoarthritis, right shoulder; M67.813 Other specified disorders of tendon, right shoulder; M25.411 Effusion, right shoulder